=== PATIENT | male | born 1950 | race African-American/Black ===

== ENCOUNTER 2024-12-06 17:02 | Inpatient (IN) | payer OTHER ==
[2024-12-06 18:02] VITALS: BMI 20.9
[2024-12-06] MEDS ORDERED: NALOXONE (NARCAN) HCL 4 MG/0.1 ML SPRAY NS PRN (19:07)
[2024-12-06] MEDS ORDERED: hydrOXYzine PAMOATE 25 MG CAPSULE (FP) PO PRN (19:07)
[2024-12-06] MEDS ORDERED: MAGNESIUM HYDROX 2400MG/30ML ORAL SUSPENSION 30 ML CUP PO PRN (19:07)
[2024-12-06] MEDS ORDERED: IBUPROFEN 400 MG TABLET (FP) PO PRN (19:07)
[2024-12-06] MEDS ORDERED: BENZONATATE 200 MG CAPSULE PO PRN (19:07)
[2024-12-06] MEDS ORDERED: guaiFENesin 600 MG TABLET.ER (FP) PO PRN (19:07)
[2024-12-06] MEDS ORDERED: POLYETHYLENE GLYCOL (HEALTHYLAX) 3350 17 GM PACKET PO PRN (19:07)
[2024-12-06] MEDS: THIAMINE 100 MG TABLET PO SCH (22:15)
[2024-12-06] MEDS: MELATONIN 5 MG TABLETS PO SCH (22:16)
[2024-12-06] MEDS: NICOTINE POLACRILEX 2 MG LOZENGE BC PRN (22:16)
[2024-12-07] MEDS: metFORMIN HCL 500 MG TABLET (FP) PO SCH (06:40)
[2024-12-07] MEDS: TAMSULOSIN HCL 0.4 MG CAP PO SCH (10:12)
[2024-12-07] MEDS: ASPIRIN 81 MG CHEWABLE TABLETS PO SCH (10:13)
[2024-12-07] MEDS: PRENATAL VITAMINS W/ FOLIC ACID TABLET (FP) PO SCH (10:13)
[2024-12-07] MEDS ORDERED: TUBERCULIN PPD 5 TU/0.1ML VIAL ID ONE (10:15)
[2024-12-07] MEDS: LOSARTAN POTASSIUM 25 MG TABLET PO SCH (11:00)
[2024-12-07 11:17] LABS: HEMATOCRIT 37.5 % (40.1-51.0); HEMOGLOBIN 12.2 g/dL (13.7-17.5); MCHC 32.5 g/dl (32.3-36.5); MEAN CELL VOLUME 86.4 fl (79.0-92.2); MEAN PLT VOLUME 10.1 fl (9.4-12.4); PLATELET COUNT 251 x10^3/uL (163-337); RDW 12.7 % (12.2-16.6)
[2024-12-07 11:26] LABS: CHLORIDE 105 mmol/L (98-107); POTASSIUM 4.7 mmol/L (3.5-5.1); SODIUM 136 mmol/L (136-145)
[2024-12-07 11:41] LABS: ALBUMIN 3.8 g/dl (3.4-5.0); CALCIUM 10.1 mg/dL (8.5-10.1)
[2024-12-07 11:42] LABS: ANION GAP 7 mmol/L (4-13); CO2 25 mmol/L (21-32); GLUCOSE,RANDOM 91 mg/dL (74-106)
[2024-12-07 11:44] LABS: CREATININE 0.7 mg/dL (0.55-1.3); SGOT/AST 14 U/L (15-37); SGPT/ALT 29 U/L (13-61)
[2024-12-07 11:46] LABS: BILIRUBIN,TOTAL 0.3 mg/dL (0.2-1)
[2024-12-07 11:47] LABS: ALK PHOS 92 U/L (45-117)
[2024-12-07 12:13] LABS: TOT PROT 6.4 g/dl (6.4-8.2)
[2024-12-07 16:17] LABS: SYPHILIS W/ RPR CONF NON-REACTIVE (NONREACTIVE)
[2024-12-07 16:42] LABS: HCV DIAGNOSTIC IN-HOUSE W/RFLX NON-REACTIVE (NONREACTIVE)
[2024-12-07] MEDS: INSULIN ASPART SLIDING SCALE (NOVOLOG) 1 VIAL SQ SCH (16:43)
[2024-12-07 19:04] LABS: HCV DIAGNOSTIC IN-HOUSE W/RFLX NON-REACTIVE (NONREACTIVE); HIV INTERPRETATION NEGATIVE (NEGATIVE)
[2024-12-07] MEDS: ATORVASTATIN CA 20 MG TABLET (FP) PO SCH (21:21)
[2024-12-08 12:55] LABS: PH,URINE 6.5 (5.0-8.0); URINE APPEARANCE CLEAR; URINE BILIRUBIN NEGATIVE (NEGATIVE); URINE COLOR YELLOW; URINE GLUCOSE (UA) 1+ (NEGATIVE); URINE KETONE NEGATIVE (NEGATIVE); URINE LEUK ESTERASE NEGATIVE (NEGATIVE); URINE NITRITE NEGATIVE (NEGATIVE); URINE PROTEIN NEGATIVE (NEGATIVE); URINE UROBILINOGEN 0.2 mg/dL (0.2-1.0)
[2024-12-08] MEDS: BENZOCAINE/MENTHOL (CHLORASEPTIC ) LOZENGE MM PRN (18:39)
[2024-12-11] MEDS: NICOTINE POLACRILEX 4 MG GUM BUC PRN (08:48)
[2024-12-11] MEDS: MAG HYDROX/AL HYDROX/SIMETH 30 ML UNIT-DOSE CUP PO PRN (20:22)
[2024-12-11] MEDS: MELATONIN 1 MG TABLET PO PRN (21:33)
[2024-12-13] MEDS: levETIRAcetam 500 MG TABLET (FP) PO SCH (21:07)
[2024-12-13] MEDS: BACLOFEN 10 MG TABLET (FP) PO SCH (21:07)
[2024-12-13] MEDS: GABAPENTIN 100 MG CAPSULE PO SCH (21:08)
[2024-12-13] MEDS: TOLNAFTATE 1% CREAM 15 GM TUBE TP SCH (21:08)
[2024-12-13] MEDS ORDERED: BACLOFEN 10 MG TABLET (FP) PO SCH (22:00)
[2024-12-14] MEDS: sitaGLIPtin PHOSPHATE 50 MG TABLET PO SCH (06:45)
[2024-12-14] MEDS: HYDROCHLOROTHIAZIDE 12.5 MG CAPSULE (FP) PO SCH (09:48)
[2024-12-14] MEDS: FOLIC ACID 1 MG TABLET (FP) PO SCH (09:49)
[2024-12-14] MEDS: ACETAMINOPHEN 325 MG TABLET (FP) PO PRN (23:42)
[2024-12-18] MEDS: IBUPROFEN 600 MG TABLET (FP) PO PRN (11:43)
[2024-12-18] MEDS: LOPERAMIDE HCL 2 MG CAPSULE PO PRN (19:30)
[2024-12-20 06:38] VITALS: RESP 20; TEMP 97.2
[2024-12-20] MEDS ORDERED: INSULIN (NOVOLOG) ASPART 100 UNITS/ML 10ML VIAL ONE (06:44)
[2024-12-20 09:06] VITALS: BP 115/71; PULSE 85
== END 2024-12-20 09:21 | disposition home or self-care (01) | DRG 895 ==
LOC: YASAS 17:02 → Y3E 20:43
PROVIDERS: ADMIT Psychiatry & Neurology Pain Medicine; ATTEND Psychiatry & Neurology Pain Medicine
PROC: HZ42ZZZ Group Counseling for Substance Abuse Treatment, Cognitive-Behavioral (ICD-10-PCS; principal; 2024-12-05)
DX: F19.20 Other psychoactive substance dependence, uncomplicated (principal); F14.20 Cocaine dependence, uncomplicated; F10.20 Alcohol dependence, uncomplicated; F12.20 Cannabis dependence, uncomplicated; F17.210 Nicotine dependence, cigarettes, uncomplicated; I10 Essential (primary) hypertension; E78.5 Hyperlipidemia, unspecified; E11.9 Type 2 diabetes mellitus without complications; Z79.84 Long term (current) use of oral hypoglycemic drugs; B35.3 Tinea pedis; Z86.69 Personal history of other diseases of the nervous system and sense organs
CPT/HCPCS: 36415; 80053; 80307; 81003; 82962; 85027; 86780; 86803; 87389; 93005; 93010; J0475